=== PATIENT | male | born 2005 | race Caucasian/White ===

== ENCOUNTER 2023-03-04 14:33 | Emergency (ER) | payer OTHER ==
[~2023-03-04] VITALS: Ht 175.3 cm; Wt 70.3 kg
[2023-03-04 15:12] VITALS: BP 129/78; PULSE 85; RESP 14; TEMP 97.8; O2SAT 98
[2023-03-04 16:22] VITALS: BP 129/78; PULSE 85; RESP 14; TEMP 97.8; O2SAT 98
== END 2023-03-04 16:22 | disposition home or self-care (01) ==
LOC: MED 14:33
DX: R20.2 Paresthesia of skin (principal); N52.9 Male erectile dysfunction, unspecified; F41.9 Anxiety disorder, unspecified; F12.90 Cannabis use, unspecified, uncomplicated
CPT/HCPCS: 93005; 99283